=== PATIENT | female | born 1985 | race Caucasian/White ===

== ENCOUNTER 2019-07-21 06:44 | Inpatient (IN) ==
[~2019-07-21 06:44] MED LIST: D5 1/2 NS 1000 ML 1,000 ML IV ONE; D5 1/2 NS 1L W PITOCIN 20 UNITS/L 20 UNITS/1,000 ML BAG IV ONE; D5LR 1L W PITOCIN 10 UNITS/L 10 UNITS/1,000 ML BAG IV ONE; PITOCIN ONE
[2019-07-21] MEDS ORDERED: D5 1/2 NS 1000 ML 1,000 ML IV SCH (06:53)
[2019-07-21] MEDS ORDERED: REGLAN INJ 10 MG VIAL IVP PRN (06:53)
[2019-07-21] MEDS ORDERED: NUBAIN INJ 200 MG VIAL MULTIDOSE IVP PRN (06:53)
[2019-07-21] MEDS ORDERED: PITOCIN IVP ONE (06:53)
[2019-07-21] MEDS ORDERED: PHENERGAN INJ 25 MG IM PRN ×2 (06:53→16:52)
[2019-07-21] MEDS ORDERED: MORPHINE SULFATE INJ 2 MG INJ IVP PRN (06:53)
[2019-07-21] MEDS ORDERED: D5LR 1L W PITOCIN 10 UNITS/L 10 UNITS/1,000 ML BAG IV PRN (06:53)
--- NOTE | 2019-07-21 07:20 | DR.OB ---
OB Quick Note - Assessment/Plan Assessment/Plan: L&D 07/21/19 at 7:10am S-No complaint. O-Afebrile,VSS WRT=127 with good LTV, +accel, no decel. CTX=mild, irregular CVX=2cm/50%/-1/VTX AROM with clear fluid. IUPC and FSE placed. A-IUP at 39 0/7 weeks for induction P-Begin pitocin induction Anticipate
[2019-07-21] MEDS ORDERED: LR 1000 ML IV 1,000 ML IV ONE (09:38)
[2019-07-21] MEDS ORDERED: FENTANYL INJ 100 mcg ONE (09:39)
[2019-07-21] MEDS ORDERED: NAROPIN EPIDURAL 0.2% + FENTANYL 90MCG 60 ML EPI ONE ×2 (09:39→15:29)
--- NOTE | 2019-07-21 11:51 | DR.OB ---
OB Quick Note - Assessment/Plan Assessment/Plan: L&D 07/21/19 at 11:45am S-No complaint. s/p epidural. Pitocin off after episode of severe variables. O-Afebrile, VSS WUK=723 with good LTV, +accel, no decel. CTX=q 1 1/2 to 3 min., about 45-55mmHg CVX=4cm/90%/0/VTX A-IUP at 39 0/7 weeks for induction P-Start pitocin back Anticipate
[2019-07-21] MEDS ORDERED: EPHEDRINE SULFATE INJ ONE (12:09)
[2019-07-21] MEDS ORDERED: REGLAN INJ 10 MG VIAL ONE (12:20)
[2019-07-21] MEDS ORDERED: D5 1/2 NS 1000 ML 1,000 ML IV ONE (15:02)
[2019-07-21] MEDS ORDERED: MOTRIN TAB 800 MG PO PRN (16:52)
--- NOTE | 2019-07-21 16:52 | DR.OB ---
OB Quick Note - Assessment/Plan Assessment/Plan: Delivery Note [facility] 07/21/19 at 4:37pm Patient complete and pushing. Head delivered over intact perineum. No nuchal cord. Nose and mouth bulb suctioned. Body delivered over intact perineum. Cord clamped x 2 and cut. handed to attendant. Cord sent for gases. Placenta delivered spontaneously / intact / 3 vessel cord. No CVX tears. A small midline second degree tear noted and repaired with 0-vicryl in usual fashion. Viable female infant, VTX/OA, wt=6'12" and 9/9, stable to NBN. Mother stable to RR. GSX=[id number].
[2019-07-21] MEDS: D5 1/2 NS 1000 ML 1,000 ML with PITOCIN 20 UNITS IV SCH ×2 (17:26)
[2019-07-21] MEDS ORDERED: MILK OF MAGNESIA PO PRN (17:32)
[2019-07-21] MEDS ORDERED: DERMOPLAST SPRAY TOP PRN (17:32)
[2019-07-21] MEDS ORDERED: AMBIEN PO PRN (17:32)
[2019-07-21] MEDS ORDERED: ADACEL or BOOSTRIX TDaP VACCINE IM ONE (17:32)
[2019-07-21] MEDS: ZANTAC PO SCH (21:47)
[2019-07-22] MEDS: D5 1/2 NS 1000 ML 1,000 ML with PITOCIN 20 UNITS IV SCH ×6 (01:30→17:53)
[2019-07-22 03:55] LABS: HEMATOCRIT 24.6 % (36.0-47.0); HEMOGLOBIN 8.6 g/dL (12.0-16.0)
[2019-07-22] MEDS ORDERED: PRENATAL PLUS PO SCH (09:00)
[2019-07-22] MEDS: ZANTAC PO SCH (09:25)
[2019-07-22 16:03] VITALS: BP 105/65
== END 2019-07-22 19:15 | disposition home or self-care (01) | DRG 807 ==
LOC: LD 06:44 → MED/SURG 17:39
PROVIDERS: ADMIT Specialist; ATTEND Specialist
DX: D50.8 Other iron deficiency anemias; O70.1 Second degree perineal laceration during delivery; Z37.0 Single live birth; O99.013 Anemia complicating pregnancy, third trimester; Z3A.39 39 weeks gestation of pregnancy; O99.613 Diseases of the digestive system complicating pregnancy, third trimester
CPT/HCPCS: 36415; 59409; 80048; 80307; 81001; 85014; 85018; 85025; 86592; 86850; 86900; 86901; S0197; G0434; J2590; J2765; J3010; J3490; J7120; S5010